=== PATIENT | male | born 1995 | race Caucasian/White ===

== ENCOUNTER 2017-02-01 21:39 | Emergency (ER) | payer OTHER ==
[2017-02-01] MEDS ORDERED: CEFTRIAXONE INJ 250 MG VIAL IM ONE (23:56)
[2017-02-01] MEDS ORDERED: AZITHROMYCIN 250 MG TABLET PO ONE (23:56)
[2017-02-01] MEDS ORDERED: LIDOCAINE 1% INJ-PF (10 MG/ML) 30 ML SDV INJ ONE (23:56)
--- NOTE | 2017-02-02 00:13 | ER Document Report ---
HPI - HPI Patient complains to provider of: back pain, STD exposure Pain Level: 4 Context: Patient is a 21-year-old male that comes emergency department for chief complaint of suspected STD exposure. He denies discharge, dysuria, abdominal or groin pain, however his significant other who is at bedside reported that she was in a previous relationship and found out she was exposed to chlamydia. She has been treated. 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 Denies any daily medications or any medical history. - DERM Skin Color: Normal Past Medical History - General Information source: Patient - Social History Smoking Status: Never Smoker Drug Abuse: None Lives with: Spouse/Significant other Family History: Reviewed & Not Pertinent Patient has suicidal ideation: No Patient has homicidal ideation: No - Medical History Medical History: Negative Renal/ Medical History: Denies: Hx Peritoneal Dialysis Surgical Hx: Negative - Immunizations Immunizations up to date: Yes Hx Diphtheria, Pertussis, Tetanus Vaccination: Yes Vertical Provider Document - CONSTITUTIONAL General Appearance: WD/WN, No Apparent Distress - INFECTION CONTROL TRAVEL OUTSIDE OF THE [place] IN LAST 30 DAYS: No - HEENT HEENT: Atraumatic, Normal ENT Exam, Normocephalic - RESPIRATORY Respiratory: Breath Sounds Normal, No Respiratory Distress O2 Sat by Pulse Oximetry: 97 - CARDIOVASCULAR Cardiovascular: Regular Rate, Regular Rhythm, No Murmur - GI/ABDOMEN Gastrointestinal: Abdomen Soft, Abdomen Non-Tender - BACK Back: negative: Normal Inspection - There is paraspinal muscle tenderness in the bilateral mid to lumbar areas, no midline tenderness, no saddle anesthesia, patient moves all extremities without difficulty, normal distal neurovascular exam - MUSCULOSKELETAL/EXTREMETIES Musculoskeletal/Extremeties: MAEW, FROM, Non-Tender Course - Re-evaluation Re-evalutation: Exam consistent with simple lower back muscular strain with no concerning abnormalities found or reported suggesting emergent pathology. Patient with STD exposure which will be addressed with antibiotics. Discussed follow-up, discussed return precautions, patient states understanding and agreement. - Vital Signs Vital signs: Temp Pulse Resp BP Pulse Ox 98.1 F 88 16 121/59 L 97 02/01/17 21:46 02/01/17 21:46 02/01/17 21:46 02/01/17 21:46 02/01/17 21:46 Discharge - Discharge Clinical Impression: Possible exposure to STD Lower back pain Qualifiers: Chronicity: acute Back pain laterality: bilateral Sciatica presence: without sciatica Qualified Code(s): M54.5 - Low back pain Condition: Stable Disposition: HOME, SELF-CARE Additional Instructions: You have been covered for STD exposure. Your examination is reassuring. Take the naproxen anti-inflammatory for your back, take the Robaxin if needed additionally, apply heat to the area, do gentle stretches/massage, try to avoid lifting when possible, lift with your legs not your back when possible. Follow-up with primary care. Return to the emergency department for any concerning symptoms. Prescriptions: Methocarbamol [Robaxin 750 mg Tablet] 750 mg PO Q6 #20 tablet Naproxen 500 mg PO BID #20 tablet
[2017-02-02 00:34] VITALS: BP 118/73
== END 2017-02-02 00:30 | disposition home or self-care (01) ==
LOC: ER 21:39
DX: Z20.2 Contact with and (suspected) exposure to infections with a predominantly sexual mode of transmission (principal); M54.5 Low back pain; M54.9 Dorsalgia, unspecified
CPT/HCPCS: 99283; 96372; J3490; J0696